=== PATIENT | female | born 1995 | race American Indian/Alaskan Native ===

== ENCOUNTER 2021-08-22 19:14 | Outpatient (CLI) | payer OTHER ==
[2021-08-22] MEDS ORDERED: LACTATED RINGERS 500 ML IV ONE (20:01)
[2021-08-22 20:13] VITALS: BP 123/70
[2021-08-22 20:25] LABS: Bilirubin,Urine NEG (Negative); Blood,Urine NEG (Negative); Color,Urine Yellow (Yellow); Mucus,Urine FEW /HPF; Protein,Urine <15 mg/dL mg/dL (Negative); RBC,Urine < 1.0 /HPF (0.0-6.0)
== END 2021-08-22 21:32 | disposition home or self-care (01) ==
LOC: TRG 19:14 → APU 19:38 → TRG 21:32
PROVIDERS: ATTEND Obstetrics & Gynecology
DX: O26.892 Other specified pregnancy related conditions, second trimester (principal); M54.59 Other low back pain; Z3A.25 25 weeks gestation of pregnancy
CPT/HCPCS: 59025; 81001